=== PATIENT | male | born 1985 | race Caucasian/White ===

== ENCOUNTER 2016-09-08 21:04 | Emergency (ER) | payer OTHER ==
[2016-09-08 21:31] VITALS: BP 153/100; PULSE 115; RESP 16; TEMP 98.2; O2SAT 93
[2016-09-08] MEDS ORDERED: HYDROCODONE/APAP 5/325 TAB PO ONE (21:56)
[2016-09-08] MEDS ORDERED: IBUPROFEN 600 MG TAB PO ONE (21:57)
--- NOTE | 2016-09-08 22:47 | EDPHY ---
H & P Stated Complaint: L ankle injury Time Seen by Provider: 09/08/16 21:51 HPI/ROS: CHIEF COMPLAINT: Left ankle pain. HISTORY OF PRESENT ILLNESS: The patient is a 31-year-old male who presents with left ankle pain secondary to rolling the ankle while playing roller hockey just prior to arrival. He denies knee pain, numbness, weakness, or paresthesias. He has full range of motion in his toes. He has a history of ankle fracture in his right ankle and this felt similar. No fever, chills, chest pain, shortness of breath, palpitations, vomiting, diarrhea, urinary complaints, headache, lightheadedness. REVIEW OF SYSTEMS: Aside from elements discussed in the HPI, a comprehensive 10-point review of systems was reviewed and is negative. PAST MEDICAL HISTORY: Ankle fracture. SOCIAL HISTORY: Plays roller hockey. VITAL SIGNS: Reviewed by me GENERAL: Well-developed, well-nourished, resting comfortably in no respiratory distress. EXTREMITIES: No edema. Left ankle: swollen over lateral and medial malleoli as well as over talar dome. No break in skin, no lacerations or abrasion, tenderness mild on both malleoli. Dorsal pedal and posterior tibial pulses intact. Sensation intact. NEURO: Alert and oriented, grossly nonfocal. SKIN: Warm and dry, no rash. PSYCHIATRIC: Normal mentation, no agitation. Portions of this note were transcribed by a medical insurance clerk. I personally performed a history, physical exam, medical decision making, and confirmed accuracy of information the transcribed note. Source: Patient Exam Limitations: No limitations - Personal History Current Tetanus/Diphtheria Vaccine: Unsure Current Tetanus Diphtheria and Acellular Pertussis (TDAP): Unsure - Medical/Surgical History Hx Asthma: Yes Hx Chronic Respiratory Disease: No Hx Diabetes: No Hx Cardiac Disease: No Hx Renal Disease: No Hx Cirrhosis: No Hx Alcoholism: No Hx HIV/AIDS: No Hx Splenectomy or Spleen Trauma: No Other PMH: R ankl fx surgically repaired, asthma - Social History Smoking Status: Never smoked Constitutional: Initial Vital Signs Temperature (C) 36.8 C 09/08/16 21:28 Heart Rate 115 H 09/08/16 21:28 Respiratory Rate 16 09/08/16 21:28 Blood Pressure 153/100 H 09/08/16 21:28 O2 Sat (%) 93 09/08/16 21:28 O2 Delivery Mode Room Air Allergies/Adverse Reactions: No Known Allergies Allergy (Unverified 09/08/16 21:28) Home Medications: Medication Instructions Recorded oxyCODONE/APAP 5/325 [Percocet 1 tab PO QID PRN #14 tab 09/08/16 5/325 (*)] Medical Decision Making - Diagnostics Imaging Results: Findings: There is an oblique, displaced fracture of the lateral malleolus. Additionally, there is a minimally displaced fracture of the posterior malleolus. There is disruption of the ankle mortise with widening medially. The talar dome is intact. Impression: Bimalleolar ankle fracture with associated disruption of the ankle mortise. Dictated By: Orestes Vega MD Imaging: I viewed and interpreted images myself Procedures: Procedure: Splint placement. An orthoglass sugar tong splint was applied to the left ankle by the tech. After application of the splint I returned and re-examined the patient. The splint was adequately immobilizing the joint and distal to the splint the patient's circulation and sensation was intact. ED Course/Re-evaluation: 31-year-old male presents with left ankle pain secondary to roller hockey accident. He is neurovascularly intact distally and has full range of motion in his toes. No numbness, weakness, or paresthesias. X-ray shows bimalleolar fracture with disruption of the ankle mortise. Orthopedics paged. [id number]: Consulted with Dr. Siegel, orthopedics. He will see the patient in his office tomorrow morning to discuss surgery. He will be placed in a sugar tong orthoglass splint. Differential Diagnosis: Diff dx considered ankle sprain, ankle dislocation, ankle fracture, open fracture, abrasion. - Data Points Medications Given: Discontinued Medications Hydrocodone Bitart/Acetaminophen ([place] 5/325) 2 tab PO EDNOW ONE Stop: 09/08/16 21:57 Last Admin: 09/08/16 22:05 Dose: 2 tab Ibuprofen (Motrin) 600 mg PO EDNOW ONE Stop: 09/08/16 21:58 Last Admin: 09/08/16 22:05 Dose: 600 mg Oxycodone/Acetaminophen (Percocet 5/325mg Prepack#4) 1 btl TAKEHOME EDNOW ONE Stop: 09/08/16 23:25 Last Admin: 09/08/16 23:24 Dose: 1 btl Departure - Departure Disposition: Home, Routine, Self-Care Clinical Impression: Closed left ankle fracture Condition: Good Instructions: Ankle Fracture (ED), Crutch Instructions (ED) Additional Instructions: Do not bear weight on your injured ankle until you have followed up with orthopedics. Take 600mg Ibuprofen every 6-8 hours as needed for pain. Call Dr. Siegel, orthopedics, tomorrow morning to set up a follow up appointment and discuss surgery. Return for any serious worsening of condition. Referrals: Tarun Siegel MD [Medical Doctor] - As per Instructions Prescriptions: oxyCODONE/APAP 5/325 [Percocet 5/325 (*)] 1 tab PO QID PRN #14 tab PRN Reason: Pain Report Scribed for: Eli Willoughby Report Scribed by: Bobo Gee Date of Report: 09/08/16 Time of Report: 22:47
[2016-09-08] MEDS ORDERED: OXYCODONE/APAP 5/325MG PREPACK#4 BTL TAKEHOME ONE ×2 (23:23→23:24)
== END 2016-09-08 23:28 | disposition home or self-care (01) ==
DX: S82.842A Displaced bimalleolar fracture of left lower leg, initial encounter for closed fracture (principal); J45.909 Unspecified asthma, uncomplicated; X58.XXXA Exposure to other specified factors, initial encounter; Y99.8 Other external cause status; Y93.65 Activity, lacrosse and field hockey